=== PATIENT | female | born 1995 | race Two or more races ===

== ENCOUNTER 2017-04-16 19:46 | Emergency (ER) | payer SELFPAY ==
[~2017-04-16] VITALS: Ht 157.5 cm; Wt 45.0 kg
[~2017-04-16 19:46] MED LIST: CLON.5 PO; FLUO-191 PO; RISP1 PO
[2017-04-16 20:15] LABS: BASOPHILS # (AUTO) 0.02 K/uL (0.00-0.20); BASOPHILS % (AUTO) 0.2 % (0.0-2.0); EOSINOPHILS % (AUTO) 0.05 % (1.0-6.0); HEMATOCRIT 36.8 % (36-46); LYMPHOCYTES # (AUTO) 1.3 K/uL (1.0-4.8); LYMPHOCYTES % (AUTO) 13.3 % (22.0-44.0); MEAN CORPUSCULAR HEMOGLOBIN 29.8 pg (26.0-34.0); MEAN CORPUSCULAR HGB CONC 32.7 G/dL (31.0-37.0); MEAN CORPUSCULAR VOLUME 91 fL (80-100); MONOCYTES # (AUTO) 0.5 K/uL (0.1-1.0); MONOCYTES % (AUTO) 5.2 % (2.0-9.0); NEUTROPHILS # (AUTO) 8.1 K/uL (1.8-7.7); NEUTROPHILS % (AUTO) 81.2 % (40.0-70.0); PLATELET COUNT (AUTO) 246 K/uL (150-450); RED BLOOD CELL COUNT(AUTO) 4.04 MIL/uL (4.00-5.20); RED CELL DISTRIBUTION WIDTH 14.9 % (11.5-14.5); WHITE BLOOD COUNT (AUTO) 9.9 K/uL (4.5-11.0)
[2017-04-16 20:19] LABS: ANION GAP 10 mmol/L (8-16); CALCIUM, TOTAL 8.9 mg/dL (8.8-10.5); CARBON DIOXIDE 29 mmol/L (22-29); CHLORIDE 103 mmol/L (98-107); CREATININE 0.84 mg/dL (0.60-1.30); GLOMERULAR FILTR. RATE CALC > 60 mL/min (>60); POTASSIUM 3.5 mmol/L (3.5-5.1); SODIUM SERUM 142 mmol/L (136-145); UREA NITROGEN, BLOOD 12 mg/dL (7-18)
[2017-04-16 20:27] LABS: ALANINE AMINOTRANSFERASE 53 U/L (12-78); ALBUMIN 4.2 g/dL (3.4-5.0); ASPARTATE AMINOTRANSFERASE 19 U/L (15-37); TOTAL PROTEIN, SERUM 7.2 g/dL (6.4-8.2)
[2017-04-16 21:01] VITALS: BP 118/80
== END 2017-04-16 21:02 | disposition home or self-care (01) ==
LOC: EMS 19:47
DX: F41.9 Anxiety disorder, unspecified (principal); F31.9 Bipolar disorder, unspecified; F12.10 Cannabis abuse, uncomplicated; F15.10 Other stimulant abuse, uncomplicated; F17.210 Nicotine dependence, cigarettes, uncomplicated
CPT/HCPCS: 36415; 80053; 84703; 85025; 99284; G0480

== ENCOUNTER 2017-04-19 02:21 | Emergency (ER) | payer SELFPAY ==
[~2017-04-19] VITALS: Ht 157.5 cm; Wt 45.0 kg
[2017-04-19 03:03] LABS: BASOPHILS # (AUTO) 0.02 K/uL (0.00-0.20); BASOPHILS % (AUTO) 0.4 % (0.0-2.0); EOSINOPHILS # (AUTO) 0.06 K/uL (0.00-0.70); EOSINOPHILS % (AUTO) 0.89 % (1.0-6.0); HEMATOCRIT 32.8 % (36-46); HEMOGLOBIN 10.8 g/dL (12.0-16.0); LYMPHOCYTES # (AUTO) 1.4 K/uL (1.0-4.8); LYMPHOCYTES % (AUTO) 21.2 % (22.0-44.0); MEAN CORPUSCULAR HEMOGLOBIN 30.1 pg (26.0-34.0); MEAN CORPUSCULAR HGB CONC 32.9 G/dL (31.0-37.0); MEAN CORPUSCULAR VOLUME 91 fL (80-100); MONOCYTES # (AUTO) 0.7 K/uL (0.1-1.0); MONOCYTES % (AUTO) 9.7 % (2.0-9.0); NEUTROPHILS # (AUTO) 4.5 K/uL (1.8-7.7); NEUTROPHILS % (AUTO) 67.8 % (40.0-70.0); PLATELET COUNT (AUTO) 232 K/uL (150-450); RED BLOOD CELL COUNT(AUTO) 3.59 MIL/uL (4.00-5.20); RED CELL DISTRIBUTION WIDTH 14.9 % (11.5-14.5); WHITE BLOOD COUNT (AUTO) 6.7 K/uL (4.5-11.0)
[2017-04-19 03:10] LABS: ANION GAP 6 mmol/L (8-16); CARBON DIOXIDE 30 mmol/L (22-29); CHLORIDE 108 mmol/L (98-107); CREATININE 0.83 mg/dL (0.60-1.30); GLOMERULAR FILTR. RATE CALC > 60 mL/min (>60); POTASSIUM 3.8 mmol/L (3.5-5.1); SODIUM SERUM 144 mmol/L (136-145); UREA NITROGEN, BLOOD 10 mg/dL (7-18)
[2017-04-19 03:16] LABS: ALANINE AMINOTRANSFERASE 30 U/L (12-78); ALBUMIN 3.4 g/dL (3.4-5.0); ASPARTATE AMINOTRANSFERASE 14 U/L (15-37); BILIRUBIN,TOTAL 0.5 mg/dL (0.1-1.0); TOTAL PROTEIN, SERUM 5.9 g/dL (6.4-8.2)
[2017-04-19 04:46] VITALS: BP 110/68
== END 2017-04-19 04:50 | disposition home or self-care (01) ==
LOC: EMS 02:23
DX: F32.9 Major depressive disorder, single episode, unspecified (principal); F41.9 Anxiety disorder, unspecified; F17.210 Nicotine dependence, cigarettes, uncomplicated; F12.10 Cannabis abuse, uncomplicated
CPT/HCPCS: 36415; 80053; 80307; 84703; 85025; 99284; G0480

== ENCOUNTER 2017-08-20 09:19 | Emergency (ER) | payer MEDICAID ==
[~2017-08-20] VITALS: Ht 157.5 cm; Wt 47.7 kg
[2017-08-20 09:33] VITALS: BP 110/71
[2017-08-20 09:57] LABS: BASOPHILS # (AUTO) 0.02 K/uL (0.00-0.20); BASOPHILS % (AUTO) 0.3 % (0.0-2.0); EOSINOPHILS # (AUTO) 0.05 K/uL (0.00-0.70); HEMATOCRIT 38.3 % (36-46); HEMOGLOBIN 13.4 g/dL (12.0-16.0); LYMPHOCYTES # (AUTO) 1.2 K/uL (1.0-4.8); LYMPHOCYTES % (AUTO) 16.2 % (22.0-44.0); MEAN CORPUSCULAR HEMOGLOBIN 30.3 pg (26.0-34.0); MEAN CORPUSCULAR HGB CONC 34.8 G/dL (31.0-37.0); MEAN CORPUSCULAR VOLUME 87 fL (80-100); MONOCYTES # (AUTO) 0.4 K/uL (0.1-1.0); MONOCYTES % (AUTO) 5.6 % (2.0-9.0); NEUTROPHILS # (AUTO) 5.9 K/uL (1.8-7.7); NEUTROPHILS % (AUTO) 77.3 % (40.0-70.0); PLATELET COUNT (AUTO) 227 K/uL (150-450); RED BLOOD CELL COUNT(AUTO) 4.41 MIL/uL (4.00-5.20); RED CELL DISTRIBUTION WIDTH 13.7 % (11.5-14.5); WHITE BLOOD COUNT (AUTO) 7.7 K/uL (4.5-11.0)
[2017-08-20 10:08] LABS: ANION GAP 7 mmol/L (8-16); CALCIUM, TOTAL 8.4 mg/dL (8.8-10.5); CARBON DIOXIDE 29 mmol/L (22-29); CHLORIDE 106 mmol/L (98-107); CREATININE 0.89 mg/dL (0.60-1.30); GLOMERULAR FILTR. RATE CALC > 60 mL/min (>60); POTASSIUM 3.7 mmol/L (3.5-5.1); SODIUM SERUM 142 mmol/L (136-145); UREA NITROGEN, BLOOD 11 mg/dL (7-18)
[2017-08-20 10:13] LABS: ALANINE AMINOTRANSFERASE 20 U/L (12-78); ALBUMIN 3.7 g/dL (3.4-5.0); ASPARTATE AMINOTRANSFERASE 17 U/L (15-37); BILIRUBIN,TOTAL 0.7 mg/dL (0.1-1.0); TOTAL PROTEIN, SERUM 6.9 g/dL (6.4-8.2)
[2017-08-20] MEDS ORDERED: LORazepam 2 MG TABLET PO ONE (10:15)
[2017-08-20] MEDS ORDERED: RisperiDONE 1 MG TABLET PO ONE (10:15)
[2017-08-20] MEDS ORDERED: ACETAMINOPHEN 325 MG TABLET PO ONE (10:30)
== END 2017-08-20 10:50 | disposition home or self-care (01) ==
LOC: EEVIPCON 09:24 → EMS 09:24
DX: F32.9 Major depressive disorder, single episode, unspecified (principal); F41.9 Anxiety disorder, unspecified; F17.210 Nicotine dependence, cigarettes, uncomplicated; F12.10 Cannabis abuse, uncomplicated; F15.10 Other stimulant abuse, uncomplicated
CPT/HCPCS: 36415; 80053; 80307; 85025; 99285; G0480

== ENCOUNTER 2017-11-17 16:43 | Inpatient (IN) | payer MEDICAID ==
[~2017-11-17] VITALS: Ht 167.6 cm; Wt 47.2 kg
[2017-11-17] MEDS ORDERED: CLON.5 PO (17:01)
[2017-11-17] MEDS ORDERED: RISP.5 PO (17:01)
[2017-11-17] MEDS ORDERED: PROZ10 PO (17:01)
[2017-11-17 17:16] LABS: BASOPHILS # (AUTO) 0.04 K/uL (0.00-0.20); BASOPHILS % (AUTO) 0.3 % (0.0-2.0); EOSINOPHILS # (AUTO) 0.02 K/uL (0.00-0.70); EOSINOPHILS % (AUTO) 0.12 % (1.0-6.0); HEMOGLOBIN 14.7 g/dL (12.0-16.0); LYMPHOCYTES # (AUTO) 2.1 K/uL (1.0-4.8); MEAN CORPUSCULAR HEMOGLOBIN 30.6 pg (26.0-34.0); MEAN CORPUSCULAR HGB CONC 33.4 G/dL (31.0-37.0); MEAN CORPUSCULAR VOLUME 92 fL (80-100); MONOCYTES # (AUTO) 0.9 K/uL (0.1-1.0); MONOCYTES % (AUTO) 6.4 % (2.0-9.0); NEUTROPHILS # (AUTO) 10.7 K/uL (1.8-7.7); NEUTROPHILS % (AUTO) 78.2 % (40.0-70.0); PLATELET COUNT (AUTO) 239 K/uL (150-450); RED BLOOD CELL COUNT(AUTO) 4.79 MIL/uL (4.00-5.20); RED CELL DISTRIBUTION WIDTH 13.3 % (11.5-14.5)
[2017-11-17 17:26] LABS: AMPHET/METH SCREEN,URINE POSITIVE (NEGATIVE); BARBITURATE SCREEN, URINE NEGATIVE (NEGATIVE); BENZODIAZEPINES SCREEN,URINE NEGATIVE (NEGATIVE); CANNABINOID SCREEN,URINE POSITIVE (NEGATIVE); COCAINE SCREEN,URINE NEGATIVE (NEGATIVE); METHADONE SCREEN, URINE NEGATIVE (NEGATIVE); OPIATE SCREEN,URINE NEGATIVE (NEGATIVE)
[2017-11-17 17:27] LABS: ANION GAP 5 mmol/L (8-16); CALCIUM, TOTAL 9.1 mg/dL (8.8-10.5); CARBON DIOXIDE 31 mmol/L (22-29); CHLORIDE 101 mmol/L (98-107); CREATININE 0.84 mg/dL (0.60-1.30); GLOMERULAR FILTR. RATE CALC > 60 mL/min (>60); GLUCOSE,RANDOM 88 mg/dL (70-110); POTASSIUM 3.3 mmol/L (3.5-5.1); SODIUM SERUM 137 mmol/L (136-145); UREA NITROGEN, BLOOD 5 mg/dL (7-18)
[2017-11-17 17:31] LABS: PHENCYCLIDINE SCREEN,URINE NEGATIVE (NEGATIVE)
[2017-11-17 17:32] LABS: ALANINE AMINOTRANSFERASE 24 U/L (12-78); ALBUMIN 4.2 g/dL (3.4-5.0); ALKALINE PHOSPHATASE 90 U/L (46-116); ASPARTATE AMINOTRANSFERASE 23 U/L (15-37); BILIRUBIN,TOTAL 0.5 mg/dL (0.1-1.0); TOTAL PROTEIN, SERUM 7.8 g/dL (6.4-8.2)
[2017-11-17] MEDS ORDERED: ZOLPIDEM TARTRATE 10 MG TABLET PO PRN (18:15)
[2017-11-17] MEDS ORDERED: OLANZapine 5 MG RAPDIS TABLET PO PRN (18:15)
[2017-11-17] MEDS ORDERED: LORazepam 2 MG TABLET PO PRN (18:15)
[2017-11-17] MEDS ORDERED: POTASSIUM CHLORIDE 20 MEQ ER TABLET PO ONE (19:30)
[2017-11-17] MEDS ORDERED: PERMETHRIN 5% 60 GM CREAM TP ONE (19:30)
[2017-11-17 21:34] VITALS: BP 109/52
[2017-11-17] MEDS ORDERED: INFLUENZA VIRUS VACCINE QVS 2017-18 (3YR+)/PF 60 MCG/0.5 ML SYRINGE IM ONE (22:30)
[2017-11-18 08:00] VITALS: BP 103/69
[2017-11-18] MEDS ORDERED: MAG HYDROX/AL HYDROX/SIMETH ES 30 ML SUSPENSION UDCUP PO PRN (09:45)
[2017-11-18] MEDS ORDERED: MAGNESIUM HYDROXIDE SUSPENSION 30 ML UDCUP PO PRN (09:45)
[2017-11-18] MEDS ORDERED: LOPERAMIDE HCL 2 MG CAPSULE PO PRN (09:45)
[2017-11-18] MEDS ORDERED: IBUPROFEN 600 MG TABLET PO PRN (09:45)
[2017-11-18] MEDS ORDERED: ONDANSETRON HCL 4 MG TABLET PO PRN (09:45)
[2017-11-18] MEDS ORDERED: ALBUTEROL SULFATE HFA 90 MCG/PUFF 8 GM INHALER IH PRN (09:45)
[2017-11-18] MEDS ORDERED: ACETAMINOPHEN 325 MG TABLET PO PRN (09:45)
[2017-11-18] MEDS ORDERED: PETROLATUM,WHITE 71 GM JELLY TP PRN (09:45)
[2017-11-18] MEDS ORDERED: BACITRACIN 28.4 GM OINTMENT TP PRN (09:45)
[2017-11-18] MEDS ORDERED: CloNIDine HCL 0.1 MG TABLET PO PRN (09:45)
[2017-11-18] MEDS ORDERED: BENZOCAINE/MENTHOL LOZENGE [8 LOZENGES/PACKET] MM PRN (10:00)
[2017-11-18 16:30] VITALS: BP 121/74
[2017-11-18] MEDS: OLANZapine 5 MG TABLET PO SCH (21:27)
[2017-11-19 06:06] LABS: BASOPHILS % (AUTO) 0.7 % (0.0-2.0); EOSINOPHILS % (AUTO) 1.3 % (1.0-6.0); HEMATOCRIT 38.2 % (36-46); HEMOGLOBIN 13.1 g/dL (12.0-16.0); LYMPHOCYTES # (AUTO) 2.6 K/uL (1.0-4.8); LYMPHOCYTES % (AUTO) 36.2 % (22.0-44.0); MEAN CORPUSCULAR HEMOGLOBIN 30.9 pg (26.0-34.0); MEAN CORPUSCULAR HGB CONC 34.3 G/dL (31.0-37.0); MEAN CORPUSCULAR VOLUME 90 fL (80-100); MONOCYTES # (AUTO) 0.7 K/uL (0.1-1.0); MONOCYTES % (AUTO) 10.5 % (2.0-9.0); NEUTROPHILS # (AUTO) 3.7 K/uL (1.8-7.7); NEUTROPHILS % (AUTO) 51.3 % (40.0-70.0); PLATELET COUNT (AUTO) 225 K/uL (150-450); RED BLOOD CELL COUNT(AUTO) 4.23 MIL/uL (4.00-5.20); RED CELL DISTRIBUTION WIDTH 13.5 % (11.5-14.5)
[2017-11-19 06:24] LABS: ANION GAP 4 mmol/L (8-16); CALCIUM, TOTAL 8.3 mg/dL (8.8-10.5); CARBON DIOXIDE 31 mmol/L (22-29); CHLORIDE 103 mmol/L (98-107); CREATININE 0.79 mg/dL (0.60-1.30); GLOMERULAR FILTR. RATE CALC > 60 mL/min (>60); GLUCOSE,RANDOM 92 mg/dL (70-110); POTASSIUM 3.9 mmol/L (3.5-5.1); SODIUM SERUM 138 mmol/L (136-145); UREA NITROGEN, BLOOD 9 mg/dL (7-18)
[2017-11-19 09:04] VITALS: BP 91/43
[2017-11-19] MEDS: FLUoxetine HCL 20 MG CAPSULE PO SCH (10:01)
[2017-11-19 16:32] VITALS: BP 117/74
[2017-11-19] MEDS: OLANZapine 5 MG TABLET PO SCH (21:03)
[2017-11-20 08:44] VITALS: BP 95/54
[2017-11-20] MEDS: FLUoxetine HCL 20 MG CAPSULE PO SCH (09:29)
[2017-11-20 16:29] VITALS: BP 107/73
[2017-11-20] MEDS: OLANZapine 5 MG TABLET PO SCH (20:23)
[2017-11-21 08:42] VITALS: BP 104/64
[2017-11-21] MEDS: FLUoxetine HCL 20 MG CAPSULE PO SCH (11:20)
[2017-11-21] MEDS ORDERED: OLAN5TAB2 PO (15:53)
== END 2017-11-21 16:30 | disposition home or self-care (01) | DRG 750 ==
LOC: EMS 16:44 → 3EI 19:23
PROVIDERS: ADMIT Psychiatry & Neurology Psychiatry; ATTEND Psychiatry & Neurology Psychiatry
PROC: 3E0234Z Introduction of Serum, Toxoid and Vaccine into Muscle, Percutaneous Approach (ICD-10-PCS; principal; 2017-11-17)
DX: F25.9 Schizoaffective disorder, unspecified (principal); R45.851 Suicidal ideations; F23 Brief psychotic disorder; F15.10 Other stimulant abuse, uncomplicated; F17.200 Nicotine dependence, unspecified, uncomplicated; F12.10 Cannabis abuse, uncomplicated; F41.9 Anxiety disorder, unspecified; G47.00 Insomnia, unspecified; F60.3 Borderline personality disorder; D72.829 Elevated white blood cell count, unspecified; R63.6 Underweight; Z68.1 Body mass index [BMI] 19.9 or less, adult; Z91.5 Personal history of self-harm; Z79.899 Other long term (current) drug therapy; Z59.0 Homelessness; Z23 Encounter for immunization
CPT/HCPCS: 99285; 99406; G0480

== ENCOUNTER 2018-02-06 12:59 | Emergency (ER) | payer MEDICAID ==
[~2018-02-06] VITALS: Ht 170.2 cm; Wt 56.8 kg
[~2018-02-06 12:59] MED LIST changes: -CLON.5 PO; -FLUO-191 PO; +OLAN5TAB2 PO; +PROZ10 PO; -RISP1 PO
[2018-02-06 15:16] VITALS: BP 118/76
== END 2018-02-06 17:51 | disposition other institution (70) ==
LOC: EMS 13:02
DX: S09.90XA Unspecified injury of head, initial encounter (principal); F20.9 Schizophrenia, unspecified; F31.9 Bipolar disorder, unspecified; F12.90 Cannabis use, unspecified, uncomplicated; F17.210 Nicotine dependence, cigarettes, uncomplicated; X83.8XXA Intentional self-harm by other specified means, initial encounter; Y93.89 Activity, other specified; Y92.89 Other specified places as the place of occurrence of the external cause; Y99.8 Other external cause status
CPT/HCPCS: 70486; 99285

== ENCOUNTER 2018-03-09 12:50 | Inpatient (IN) | payer MEDICAID ==
[~2018-03-09] VITALS: Ht 157.5 cm; Wt 50.8 kg
[~2018-03-09 12:50] MED LIST changes: +DIVA500T35 PO; +FLUO-191 PO; +OLAN10TA3 PO
[2018-03-09 13:23] LABS: AMPHET/METH SCREEN,URINE POSITIVE (NEGATIVE); BARBITURATE SCREEN, URINE NEGATIVE (NEGATIVE); BENZODIAZEPINES SCREEN,URINE NEGATIVE (NEGATIVE); CANNABINOID SCREEN,URINE POSITIVE (NEGATIVE); COCAINE SCREEN,URINE NEGATIVE (NEGATIVE); METHADONE SCREEN, URINE NEGATIVE (NEGATIVE); OPIATE SCREEN,URINE NEGATIVE (NEGATIVE)
[2018-03-09 13:26] LABS: PHENCYCLIDINE SCREEN,URINE NEGATIVE (NEGATIVE)
[2018-03-09 13:35] LABS: BASOPHILS % (AUTO) 0.5 % (0.0-2.0); EOSINOPHILS % (AUTO) 0.3 % (1.0-6.0); HEMATOCRIT 36.6 % (36-46); HEMOGLOBIN 12.7 g/dL (12.0-16.0); LYMPHOCYTES # (AUTO) 1.3 K/uL (1.0-4.8); MEAN CORPUSCULAR HEMOGLOBIN 30.4 pg (26.0-34.0); MEAN CORPUSCULAR HGB CONC 34.7 G/dL (31.0-37.0); MEAN CORPUSCULAR VOLUME 87 fL (80-100); MONOCYTES # (AUTO) 0.9 K/uL (0.1-1.0); MONOCYTES % (AUTO) 5.9 % (2.0-9.0); NEUTROPHILS # (AUTO) 12.5 K/uL (1.8-7.7); NEUTROPHILS % (AUTO) 84.3 % (40.0-70.0); PLATELET COUNT (AUTO) 235 K/uL (150-450); RED BLOOD CELL COUNT(AUTO) 4.19 MIL/uL (4.00-5.20); RED CELL DISTRIBUTION WIDTH 13.6 % (11.5-14.5)
[2018-03-09] MEDS ORDERED: IBUPROFEN 400 MG TABLET PO ONE (13:45)
[2018-03-09 14:02] LABS: ANION GAP 9 mmol/L (8-16); CALCIUM, TOTAL 8.3 mg/dL (8.8-10.5); CARBON DIOXIDE 25 mmol/L (22-29); CHLORIDE 100 mmol/L (98-107); CREATININE 0.81 mg/dL (0.60-1.30); GLOMERULAR FILTR. RATE CALC > 60 mL/min (>60); GLUCOSE,RANDOM 107 mg/dL (70-110); POTASSIUM 3.9 mmol/L (3.5-5.1); SODIUM SERUM 134 mmol/L (136-145); UREA NITROGEN, BLOOD 11 mg/dL (7-18)
[2018-03-09 14:06] LABS: ALANINE AMINOTRANSFERASE 26 U/L (12-78); ALBUMIN 3.6 g/dL (3.4-5.0); ALKALINE PHOSPHATASE 98 U/L (46-116); ASPARTATE AMINOTRANSFERASE 22 U/L (15-37); BILIRUBIN,TOTAL 0.7 mg/dL (0.1-1.0); TOTAL PROTEIN, SERUM 7.1 g/dL (6.4-8.2)
[2018-03-09] MEDS ORDERED: DiphenhydrAMINE HCL 25 MG CAPSULE PO ONE (14:45)
[2018-03-09] MEDS ORDERED: LORazepam 2 MG/ML VIAL IM ONE (14:45)
[2018-03-09] MEDS ORDERED: HALOPERIDOL LACTATE 5 MG/ML VIAL IM ONE (14:45)
[2018-03-09] MEDS ORDERED: HALOPERIDOL 5 MG TABLET PO ONE (14:45)
[2018-03-09] MEDS ORDERED: LORazepam 2 MG TABLET PO ONE (14:45)
[2018-03-09] MEDS ORDERED: DiphenhydrAMINE HCL 50 MG/ML VIAL IM ONE (14:45)
[2018-03-09] MEDS ORDERED: ACETAMINOPHEN 325 MG TABLET PO PRN (20:30)
[2018-03-09] MEDS ORDERED: IBUPROFEN 400 MG TABLET PO PRN (20:30)
[2018-03-09 20:32] VITALS: BP 101/60
[2018-03-09] MEDS: OLANZapine 10 MG TABLET PO SCH (21:00)
[2018-03-09] MEDS: DIVALPROEX SODIUM 500 MG DR TABLET PO SCH (21:00)
[2018-03-10 05:43] VITALS: BP 103/61
[2018-03-10] MEDS ORDERED: DIVALPROEX SODIUM 500 MG DR TABLET PO SCH (09:00)
[2018-03-10] MEDS ORDERED: FLUoxetine HCL 10 MG CAPSULE PO SCH (09:00)
[2018-03-10 09:07] LABS: BASOPHILS % (AUTO) 0.8 % (0.0-2.0); EOSINOPHILS % (AUTO) 0.3 % (1.0-6.0); HEMATOCRIT 36.2 % (36-46); LYMPHOCYTES # (AUTO) 1.7 K/uL (1.0-4.8); LYMPHOCYTES % (AUTO) 15.6 % (22.0-44.0); MEAN CORPUSCULAR HEMOGLOBIN 31.3 pg (26.0-34.0); MEAN CORPUSCULAR HGB CONC 35.8 G/dL (31.0-37.0); MEAN CORPUSCULAR VOLUME 87 fL (80-100); MONOCYTES # (AUTO) 0.6 K/uL (0.1-1.0); MONOCYTES % (AUTO) 5.8 % (2.0-9.0); NEUTROPHILS # (AUTO) 8.3 K/uL (1.8-7.7); NEUTROPHILS % (AUTO) 77.5 % (40.0-70.0); PLATELET COUNT (AUTO) 223 K/uL (150-450); RED BLOOD CELL COUNT(AUTO) 4.15 MIL/uL (4.00-5.20); RED CELL DISTRIBUTION WIDTH 13.5 % (11.5-14.5)
[2018-03-10] MEDS: FLUoxetine HCL 20 MG CAPSULE PO SCH (09:31)
[2018-03-10] MEDS: DIVALPROEX SODIUM 500 MG DR TABLET PO SCH ×2 (09:31→20:53)
[2018-03-10] MEDS: OLANZapine 5 MG TABLET PO SCH (09:32)
[2018-03-10 17:28] VITALS: BP 100/62
[2018-03-10] MEDS: LORazepam 2 MG TABLET PO PRN (20:52)
[2018-03-10] MEDS: OLANZapine 10 MG TABLET PO SCH (20:52)
[2018-03-10] MEDS ORDERED: OLANZapine 10 MG TABLET PO SCH (21:00)
[2018-03-11 06:42] VITALS: BP 103/62
[2018-03-11] MEDS: FLUoxetine HCL 20 MG CAPSULE PO SCH (08:34)
[2018-03-11] MEDS: DIVALPROEX SODIUM 500 MG DR TABLET PO SCH ×2 (08:34→20:39)
[2018-03-11] MEDS: OLANZapine 5 MG TABLET PO SCH (08:35)
[2018-03-11 08:40] LABS: ANION GAP 6 mmol/L (8-16); CALCIUM, TOTAL 8.3 mg/dL (8.8-10.5); CARBON DIOXIDE 29 mmol/L (22-29); CHLORIDE 104 mmol/L (98-107); CREATININE 0.86 mg/dL (0.60-1.30); GLOMERULAR FILTR. RATE CALC > 60 mL/min (>60); GLUCOSE,RANDOM 109 mg/dL (70-110); POTASSIUM 3.7 mmol/L (3.5-5.1); SODIUM SERUM 139 mmol/L (136-145); UREA NITROGEN, BLOOD 14 mg/dL (7-18)
[2018-03-11 17:00] VITALS: BP 112/62
[2018-03-11] MEDS: HALOPERIDOL 5 MG TABLET PO PRN (19:09)
[2018-03-11] MEDS: LORazepam 2 MG TABLET PO PRN (19:09)
[2018-03-11] MEDS: OLANZapine 10 MG TABLET PO SCH (20:39)
[2018-03-12 06:53] VITALS: BP 104/65
[2018-03-12] MEDS: OLANZapine 5 MG TABLET PO SCH (08:32)
[2018-03-12] MEDS: DIVALPROEX SODIUM 500 MG DR TABLET PO SCH ×2 (08:32→21:38)
[2018-03-12] MEDS: FLUoxetine HCL 20 MG CAPSULE PO SCH (08:32)
[2018-03-12 09:00] VITALS: BP 110/72
[2018-03-12 16:14] VITALS: BP 103/63
[2018-03-12] MEDS: HALOPERIDOL 5 MG TABLET PO PRN (17:51)
[2018-03-12] MEDS: LORazepam 2 MG TABLET PO PRN (17:51)
[2018-03-12] MEDS: OLANZapine 10 MG TABLET PO SCH (21:37)
[2018-03-13 07:14] VITALS: BP_SYST 105; BP_SYST 119; BP_DIAS 64; BP_DIAS 79
[2018-03-13] MEDS: FLUoxetine HCL 20 MG CAPSULE PO SCH (08:43)
[2018-03-13] MEDS: OLANZapine 5 MG TABLET PO SCH (08:43)
[2018-03-13] MEDS: LORazepam 2 MG TABLET PO PRN ×2 (08:43→16:36)
[2018-03-13] MEDS: HALOPERIDOL 5 MG TABLET PO PRN ×2 (08:43→16:36)
[2018-03-13] MEDS: DIVALPROEX SODIUM 500 MG DR TABLET PO SCH ×2 (08:43→21:00)
[2018-03-13 17:05] VITALS: BP 119/76
[2018-03-13] MEDS: OLANZapine 10 MG TABLET PO SCH (21:00)
[2018-03-14 06:36] VITALS: BP 109/64
[2018-03-14] MEDS: OLANZapine 5 MG TABLET PO SCH (08:10)
[2018-03-14] MEDS: LORazepam 2 MG TABLET PO PRN ×2 (08:10→16:59)
[2018-03-14] MEDS: DIVALPROEX SODIUM 500 MG DR TABLET PO SCH ×2 (08:10→20:10)
[2018-03-14] MEDS: FLUoxetine HCL 20 MG CAPSULE PO SCH (08:10)
[2018-03-14 09:57] VITALS: BP 106/81
[2018-03-14 16:05] VITALS: BP 106/64
[2018-03-14] MEDS: HALOPERIDOL 5 MG TABLET PO PRN (16:59)
[2018-03-14] MEDS: OLANZapine 10 MG TABLET PO SCH (20:09)
[2018-03-14] MEDS: ZOLPIDEM TARTRATE 10 MG TABLET PO PRN (22:37)
[2018-03-15 06:30] VITALS: BP 110/65
[2018-03-15 08:20] VITALS: BP 102/61
[2018-03-15] MEDS: DIVALPROEX SODIUM 500 MG DR TABLET PO SCH ×2 (09:52→20:54)
[2018-03-15] MEDS: OLANZapine 5 MG TABLET PO SCH (09:53)
[2018-03-15] MEDS: FLUoxetine HCL 20 MG CAPSULE PO SCH (09:53)
[2018-03-15 16:31] VITALS: BP 113/60
[2018-03-15] MEDS: OLANZapine 10 MG TABLET PO SCH (20:54)
[2018-03-15] MEDS: ZOLPIDEM TARTRATE 10 MG TABLET PO PRN (20:55)
[2018-03-15] MEDS: HALOPERIDOL 5 MG TABLET PO PRN (21:17)
[2018-03-16 03:56] VITALS: BP 133/64
[2018-03-16] MEDS: DIVALPROEX SODIUM 500 MG DR TABLET PO SCH ×2 (09:06→21:15)
[2018-03-16] MEDS: OLANZapine 5 MG TABLET PO SCH (09:07)
[2018-03-16] MEDS: FLUoxetine HCL 20 MG CAPSULE PO SCH (09:07)
[2018-03-16 16:21] VITALS: BP 115/74
[2018-03-16] MEDS: LOPERAMIDE HCL 2 MG CAPSULE PO PRN (17:08)
[2018-03-16] MEDS: OLANZapine 10 MG TABLET PO SCH (21:15)
[2018-03-17 07:07] VITALS: BP 113/74
[2018-03-17 08:58] VITALS: BP 103/69
[2018-03-17] MEDS: FLUoxetine HCL 20 MG CAPSULE PO SCH (09:00)
[2018-03-17] MEDS: DIVALPROEX SODIUM 500 MG DR TABLET PO SCH ×2 (09:00→20:28)
[2018-03-17] MEDS: OLANZapine 5 MG TABLET PO SCH (09:00)
[2018-03-17 16:26] VITALS: BP 108/61
[2018-03-17] MEDS: LOPERAMIDE HCL 2 MG CAPSULE PO PRN (17:11)
[2018-03-17] MEDS: OLANZapine 10 MG TABLET PO SCH (20:28)
[2018-03-17] MEDS: ZOLPIDEM TARTRATE 10 MG TABLET PO PRN (21:00)
[2018-03-18 05:37] VITALS: BP 114/71
[2018-03-18] MEDS: LOPERAMIDE HCL 2 MG CAPSULE PO PRN (06:04)
[2018-03-18] MEDS: OLANZapine 5 MG TABLET PO SCH (08:20)
[2018-03-18] MEDS: FLUoxetine HCL 20 MG CAPSULE PO SCH (08:20)
[2018-03-18] MEDS: DIVALPROEX SODIUM 500 MG DR TABLET PO SCH ×2 (08:20→20:30)
[2018-03-18 08:48] VITALS: BP 100/65
[2018-03-18 16:22] VITALS: BP 109/62
[2018-03-18] MEDS: OLANZapine 10 MG TABLET PO SCH (20:31)
[2018-03-18] MEDS: ZOLPIDEM TARTRATE 10 MG TABLET PO PRN (20:53)
[2018-03-19 05:59] VITALS: BP 113/67
[2018-03-19] MEDS: OLANZapine 5 MG TABLET PO SCH (08:31)
[2018-03-19] MEDS: DIVALPROEX SODIUM 500 MG DR TABLET PO SCH ×2 (08:31→20:30)
[2018-03-19] MEDS: FLUoxetine HCL 20 MG CAPSULE PO SCH (08:31)
[2018-03-19 08:45] VITALS: BP 113/60
[2018-03-19 16:38] VITALS: BP 109/65
[2018-03-19] MEDS: OLANZapine 10 MG TABLET PO SCH (20:30)
[2018-03-19] MEDS: ZOLPIDEM TARTRATE 10 MG TABLET PO PRN (20:30)
[2018-03-20 06:53] VITALS: BP 102/63
[2018-03-20] MEDS: FLUoxetine HCL 20 MG CAPSULE PO SCH (08:29)
[2018-03-20] MEDS: OLANZapine 5 MG TABLET PO SCH (08:29)
[2018-03-20] MEDS: DIVALPROEX SODIUM 500 MG DR TABLET PO SCH (08:29)
[2018-03-20 08:59] VITALS: BP 110/75
[2018-03-20] MEDS ORDERED: OLAN10TA3 PO (15:57)
[2018-03-20] MEDS ORDERED: OLAN5TAB2 PO (15:58)
== END 2018-03-20 16:30 | disposition home or self-care (01) | DRG 750 ==
LOC: EMS 12:51 → B3A 19:07
DX: F25.0 Schizoaffective disorder, bipolar type (principal); E87.1 Hypo-osmolality and hyponatremia; F15.20 Other stimulant dependence, uncomplicated; Z91.14 Patient's other noncompliance with medication regimen; Z59.0 Homelessness; F17.200 Nicotine dependence, unspecified, uncomplicated; G47.00 Insomnia, unspecified; F12.20 Cannabis dependence, uncomplicated; D72.829 Elevated white blood cell count, unspecified; Z91.5 Personal history of self-harm; Z79.899 Other long term (current) drug therapy; Z71.6 Tobacco abuse counseling; Z71.51 Drug abuse counseling and surveillance of drug abuser
CPT/HCPCS: 84443; 87081; 99285; G0480

== ENCOUNTER 2018-03-23 16:41 | Inpatient (IN) | payer MEDICAID ==
[~2018-03-23] VITALS: Ht 157.5 cm; Wt 52.4 kg
[~2018-03-23 16:41] MED LIST changes: -PROZ10 PO
[2018-03-23] MEDS ORDERED: HALOPERIDOL 5 MG TABLET PO PRN (17:45)
[2018-03-23] MEDS ORDERED: LORazepam 2 MG TABLET PO PRN (17:45)
[2018-03-23 17:54] VITALS: BP 107/64
[2018-03-23] MEDS ORDERED: PERMETHRIN 5% 60 GM CREAM TP ONE (20:15)
[2018-03-23] MEDS: DIVALPROEX SODIUM 500 MG DR TABLET PO SCH (20:45)
[2018-03-23] MEDS: OLANZapine 10 MG TABLET PO SCH (20:45)
[2018-03-23] MEDS: ZOLPIDEM TARTRATE 10 MG TABLET PO PRN (22:41)
[2018-03-24 05:28] VITALS: BP 102/64
[2018-03-24 08:30] LABS: BASOPHILS % (AUTO) 0.6 % (0.0-2.0); EOSINOPHILS % (AUTO) 2.7 % (1.0-6.0); HEMATOCRIT 34.6 % (36-46); HEMOGLOBIN 11.9 g/dL (12.0-16.0); LYMPHOCYTES # (AUTO) 2.6 K/uL (1.0-4.8); LYMPHOCYTES % (AUTO) 38.4 % (22.0-44.0); MEAN CORPUSCULAR HEMOGLOBIN 30.6 pg (26.0-34.0); MEAN CORPUSCULAR HGB CONC 34.4 G/dL (31.0-37.0); MEAN CORPUSCULAR VOLUME 89 fL (80-100); MONOCYTES # (AUTO) 0.9 K/uL (0.1-1.0); NEUTROPHILS # (AUTO) 3.1 K/uL (1.8-7.7); NEUTROPHILS % (AUTO) 45.3 % (40.0-70.0); PLATELET COUNT (AUTO) 278 K/uL (150-450); RED CELL DISTRIBUTION WIDTH 13.8 % (11.5-14.5)
[2018-03-24 08:38] LABS: HEMOGLOBIN A1C 5.9 % (4.5-6.2)
[2018-03-24 08:39] VITALS: BP 109/76
[2018-03-24] MEDS: OLANZapine 5 MG TABLET PO SCH (08:41)
[2018-03-24] MEDS: FLUoxetine HCL 20 MG CAPSULE PO SCH (08:41)
[2018-03-24] MEDS: DIVALPROEX SODIUM 500 MG DR TABLET PO SCH ×2 (08:41→20:09)
[2018-03-24 08:50] LABS: ALANINE AMINOTRANSFERASE 22 U/L (12-78); ALBUMIN 3.1 g/dL (3.4-5.0); ALKALINE PHOSPHATASE 68 U/L (46-116); ANION GAP 7 mmol/L (8-16); ASPARTATE AMINOTRANSFERASE 22 U/L (15-37); BILIRUBIN,TOTAL 0.2 mg/dL (0.1-1.0); CALCIUM, TOTAL 7.9 mg/dL (8.8-10.5); CARBON DIOXIDE 31 mmol/L (22-29); CHLORIDE 105 mmol/L (98-107); CHOL/HDL RATIO 2.2 (3.9-5.7); CHOLESTEROL 105 mg/dL (131-200); CREATININE 0.79 mg/dL (0.60-1.30); FREE T4 (FREE THYROXINE) 0.97 ng/dL (0.76-1.46); GLOMERULAR FILTR. RATE CALC > 60 mL/min (>60); GLUCOSE,RANDOM 78 mg/dL (70-110); HCG,QUANTITATIVE < 1 mIU/mL (0-6); HDL CHOLESTEROL 47 mg/dL (40-60); LDL CHOL (CALC.) 51 mg/dL (0-130); POTASSIUM 3.6 mmol/L (3.5-5.1); SODIUM SERUM 143 mmol/L (136-145); THYROID STIMULATING HORMONE 4.65 uIU/mL (0.36-3.74); TRIGLYCERIDES 34 mg/dL (15-150); UREA NITROGEN, BLOOD 10 mg/dL (7-18)
[2018-03-24 10:35] LABS: AMPHET/METH SCREEN,URINE POSITIVE (NEGATIVE); BARBITURATE SCREEN, URINE NEGATIVE (NEGATIVE); BENZODIAZEPINES SCREEN,URINE NEGATIVE (NEGATIVE); CANNABINOID SCREEN,URINE POSITIVE (NEGATIVE); COCAINE SCREEN,URINE NEGATIVE (NEGATIVE); METHADONE SCREEN, URINE NEGATIVE (NEGATIVE); OPIATE SCREEN,URINE NEGATIVE (NEGATIVE)
[2018-03-24 10:36] LABS: PHENCYCLIDINE SCREEN,URINE NEGATIVE (NEGATIVE)
[2018-03-24 13:16] LABS: APPEARANCE,URINE CLEAR (CLEAR)
[2018-03-24 13:17] LABS: BILIRUBIN,URINE NEGATIVE (NEGATIVE); GLUCOSE, URINE (UA) NEGATIVE (NEGATIVE); KETONES,URINE NEGATIVE (NEGATIVE); LEUKOCYTE ESTERASE ,URINE NEGATIVE (NEGATIVE); NITRATE,URINE NEGATIVE (NEGATIVE); OCCULT BLOOD,URINE NEGATIVE (NEGATIVE); PROTEIN,URINE NEGATIVE (NEGATIVE); UROBILINOGEN,URINE 0.2 mg/dL (<=1.0)
[2018-03-24] MEDS ORDERED: PERMETHRIN 5% 60 GM CREAM TP ONE (14:00)
[2018-03-24 16:04] VITALS: BP 113/65
[2018-03-24] MEDS: OLANZapine 10 MG TABLET PO SCH (20:09)
[2018-03-24] MEDS: ZOLPIDEM TARTRATE 10 MG TABLET PO PRN (20:59)
[2018-03-24] MEDS ORDERED: IBUPROFEN 400 MG TABLET PO PRN (22:45)
[2018-03-24] MEDS ORDERED: ACETAMINOPHEN 325 MG TABLET PO PRN (22:45)
[2018-03-25 00:41] VITALS: BP 109/67
[2018-03-25] MEDS: LEVOTHYROXINE SODIUM 50 MCG TABLET PO SCH (06:59)
[2018-03-25] MEDS: FERROUS SULFATE 325 MG EC TABLET PO SCH ×2 (06:59→16:44)
[2018-03-25] MEDS: DIVALPROEX SODIUM 500 MG DR TABLET PO SCH ×2 (08:14→20:41)
[2018-03-25] MEDS: FLUoxetine HCL 20 MG CAPSULE PO SCH (08:14)
[2018-03-25] MEDS: OLANZapine 5 MG TABLET PO SCH (08:16)
[2018-03-25 08:52] VITALS: BP 115/60
[2018-03-25 09:11] LABS: CHOL/HDL RATIO 2.3 (3.9-5.7)
[2018-03-25 16:06] VITALS: BP 110/80
[2018-03-25] MEDS: ZOLPIDEM TARTRATE 10 MG TABLET PO PRN (20:41)
[2018-03-25] MEDS: OLANZapine 10 MG TABLET PO SCH (20:41)
[2018-03-26 03:13] VITALS: BP 105/77
[2018-03-26] MEDS: LEVOTHYROXINE SODIUM 50 MCG TABLET PO SCH (06:04)
[2018-03-26] MEDS: FERROUS SULFATE 325 MG EC TABLET PO SCH ×2 (06:04→16:44)
[2018-03-26 08:11] VITALS: BP 104/60
[2018-03-26] MEDS: FLUoxetine HCL 20 MG CAPSULE PO SCH (08:59)
[2018-03-26] MEDS: OLANZapine 5 MG TABLET PO SCH (08:59)
[2018-03-26] MEDS: DIVALPROEX SODIUM 500 MG DR TABLET PO SCH ×2 (08:59→20:20)
[2018-03-26 16:41] VITALS: BP 108/65
[2018-03-26] MEDS: OLANZapine 10 MG TABLET PO SCH (20:20)
[2018-03-26] MEDS: ZOLPIDEM TARTRATE 10 MG TABLET PO PRN (20:26)
[2018-03-27 06:11] VITALS: BP 104/60
[2018-03-27] MEDS: LEVOTHYROXINE SODIUM 50 MCG TABLET PO SCH (06:12)
[2018-03-27] MEDS: FERROUS SULFATE 325 MG EC TABLET PO SCH (06:12)
[2018-03-27] MEDS: DIVALPROEX SODIUM 500 MG DR TABLET PO SCH (08:37)
[2018-03-27] MEDS: OLANZapine 5 MG TABLET PO SCH (08:37)
[2018-03-27] MEDS: FLUoxetine HCL 20 MG CAPSULE PO SCH (08:37)
[2018-03-27] MEDS ORDERED: LEVO50TA11 PO (08:57)
[2018-03-27] MEDS ORDERED: FERR325T22 PO (08:57)
[2018-03-27] MEDS ORDERED: DIVA500T35 PO (08:59)
[2018-03-27] MEDS ORDERED: OLAN5TAB27 PO (08:59)
[2018-03-27] MEDS ORDERED: FLUO-191 PO (08:59)
[2018-03-27] MEDS ORDERED: OLAN10TA20 PO (08:59)
[2018-03-27 09:01] VITALS: BP 100/55
== END 2018-03-27 10:10 | disposition home or self-care (01) | DRG 750 ==
LOC: B2S 17:37
DX: F25.0 Schizoaffective disorder, bipolar type (principal); F15.20 Other stimulant dependence, uncomplicated; R45.851 Suicidal ideations; E03.9 Hypothyroidism, unspecified; D64.9 Anemia, unspecified; G47.00 Insomnia, unspecified; F17.200 Nicotine dependence, unspecified, uncomplicated; F12.90 Cannabis use, unspecified, uncomplicated; Z79.899 Other long term (current) drug therapy; Z71.6 Tobacco abuse counseling; Z71.51 Drug abuse counseling and surveillance of drug abuser
CPT/HCPCS: 80307; 83036; 84439; 84443; 87081

== ENCOUNTER 2018-04-03 03:15 | Emergency (ER) | payer MEDICAID ==
[~2018-04-03 03:15] MED LIST changes: +FERR325T22 PO; +LEVO50TA11 PO; +OLAN10TA20 PO; -OLAN10TA3 PO; -OLAN5TAB2 PO; +OLAN5TAB27 PO
== END 2018-04-03 04:32 | disposition left against medical advice (07) ==
LOC: EMS 03:16
DX: Z00.8 Encounter for other general examination (principal); Z53.21 Procedure and treatment not carried out due to patient leaving prior to being seen by health care provider

== ENCOUNTER 2018-05-04 11:54 | Inpatient (IN) | payer MEDICAID ==
[~2018-05-04] VITALS: Ht 157.5 cm; Wt 54.0 kg
[~2018-05-04 11:54] MED LIST changes: +DIVA-78 PO; -DIVA500T35 PO
[2018-05-04] MEDS ORDERED: DiphenhydrAMINE HCL 50 MG/ML VIAL IM ONE (12:45)
[2018-05-04] MEDS ORDERED: LORazepam 2 MG/ML VIAL IM ONE (12:45)
[2018-05-04] MEDS ORDERED: HALOPERIDOL LACTATE 5 MG/ML VIAL IM ONE (12:45)
[2018-05-04 13:05] LABS: BASOPHILS % (AUTO) 0.4 % (0.0-2.0); EOSINOPHILS % (AUTO) 0.1 % (1.0-6.0); HEMATOCRIT 37.1 % (36-46); HEMOGLOBIN 12.4 g/dL (12.0-16.0); LYMPHOCYTES # (AUTO) 1.5 K/uL (1.0-4.8); LYMPHOCYTES % (AUTO) 14.5 % (22.0-44.0); MEAN CORPUSCULAR HEMOGLOBIN 29.5 pg (26.0-34.0); MEAN CORPUSCULAR HGB CONC 33.4 G/dL (31.0-37.0); MEAN CORPUSCULAR VOLUME 88 fL (80-100); MONOCYTES # (AUTO) 0.8 K/uL (0.1-1.0); MONOCYTES % (AUTO) 7.9 % (2.0-9.0); NEUTROPHILS # (AUTO) 8.1 K/uL (1.8-7.7); NEUTROPHILS % (AUTO) 77.1 % (40.0-70.0); PLATELET COUNT (AUTO) 262 K/uL (150-450); RED BLOOD CELL COUNT(AUTO) 4.19 MIL/uL (4.00-5.20); RED CELL DISTRIBUTION WIDTH 13.5 % (11.5-14.5)
[2018-05-04 13:13] LABS: ANION GAP 6 mmol/L (8-16); CALCIUM, TOTAL 8.5 mg/dL (8.8-10.5); CARBON DIOXIDE 28 mmol/L (22-29); CHLORIDE 103 mmol/L (98-107); CREATININE 0.76 mg/dL (0.60-1.30); GLOMERULAR FILTR. RATE CALC > 60 mL/min (>60); GLUCOSE,RANDOM 94 mg/dL (70-110); POTASSIUM 3.6 mmol/L (3.5-5.1); SODIUM SERUM 137 mmol/L (136-145); UREA NITROGEN, BLOOD 8 mg/dL (7-18)
[2018-05-04 13:19] LABS: ALANINE AMINOTRANSFERASE 20 U/L (12-78); ALBUMIN 3.7 g/dL (3.4-5.0); ALKALINE PHOSPHATASE 80 U/L (46-116); ASPARTATE AMINOTRANSFERASE 20 U/L (15-37); BILIRUBIN,TOTAL 0.5 mg/dL (0.1-1.0); TOTAL PROTEIN, SERUM 6.8 g/dL (6.4-8.2)
[2018-05-04 13:23] LABS: AMPHET/METH SCREEN,URINE POSITIVE (NEGATIVE); BARBITURATE SCREEN, URINE NEGATIVE (NEGATIVE); BENZODIAZEPINES SCREEN,URINE NEGATIVE (NEGATIVE); CANNABINOID SCREEN,URINE POSITIVE (NEGATIVE); COCAINE SCREEN,URINE NEGATIVE (NEGATIVE); METHADONE SCREEN, URINE NEGATIVE (NEGATIVE); OPIATE SCREEN,URINE NEGATIVE (NEGATIVE)
[2018-05-04 13:24] LABS: PHENCYCLIDINE SCREEN,URINE NEGATIVE (NEGATIVE)
[2018-05-04] MEDS ORDERED: ZOLPIDEM TARTRATE 10 MG TABLET PO PRN (16:45)
[2018-05-04] MEDS: OLANZapine 5 MG TABLET PO SCH (21:00)
[2018-05-05] MEDS: LEVOTHYROXINE SODIUM 50 MCG TABLET PO SCH (06:13)
[2018-05-05 06:30] VITALS: BP 102/64
[2018-05-05] MEDS: FERROUS SULFATE 325 MG EC TABLET PO SCH ×2 (06:40→17:40)
[2018-05-05] MEDS: FLUoxetine HCL 20 MG CAPSULE PO SCH (09:39)
[2018-05-05] MEDS ORDERED: DOCUSATE SODIUM 100 MG CAPSULE PO PRN (11:15)
[2018-05-05] MEDS ORDERED: CloNIDine HCL 0.1 MG TABLET PO PRN (11:15)
[2018-05-05] MEDS ORDERED: PETROLATUM,WHITE 71 GM JELLY TP PRN (11:15)
[2018-05-05] MEDS ORDERED: MAGNESIUM HYDROXIDE SUSPENSION 30 ML UDCUP PO PRN (11:15)
[2018-05-05] MEDS ORDERED: IBUPROFEN 400 MG TABLET PO PRN (11:15)
[2018-05-05] MEDS ORDERED: ACETAMINOPHEN 325 MG TABLET PO PRN (11:15)
[2018-05-05] MEDS ORDERED: ALBUTEROL SULFATE HFA 90 MCG/PUFF 8 GM INHALER IH PRN (11:15)
[2018-05-05] MEDS ORDERED: ONDANSETRON HCL 4 MG TABLET PO PRN (11:15)
[2018-05-05] MEDS ORDERED: MAG HYDROX/AL HYDROX/SIMETH ES 30 ML SUSPENSION UDCUP PO PRN (11:15)
[2018-05-05] MEDS ORDERED: LOPERAMIDE HCL 2 MG CAPSULE PO PRN (11:15)
[2018-05-05 16:41] VITALS: BP 106/74
[2018-05-05] MEDS: LORazepam 2 MG TABLET PO PRN (17:40)
[2018-05-05] MEDS: OLANZapine 5 MG TABLET PO SCH (20:32)
[2018-05-06] MEDS: LEVOTHYROXINE SODIUM 50 MCG TABLET PO SCH (06:02)
[2018-05-06 06:34] VITALS: BP 104/58
[2018-05-06] MEDS: FERROUS SULFATE 325 MG EC TABLET PO SCH ×2 (06:47→16:47)
[2018-05-06] MEDS: FLUoxetine HCL 20 MG CAPSULE PO SCH (08:39)
[2018-05-06] MEDS: NICOTINE 14 MG/24 HOUR PATCH TD SCH (08:43)
[2018-05-06 09:05] LABS: HEMOGLOBIN A1C 5.7 % (4.5-6.2)
[2018-05-06 09:23] LABS: CHOL/HDL RATIO 2.6 (3.9-5.7); THYROID STIMULATING HORMONE 0.95 uIU/mL (0.36-3.74)
[2018-05-06 16:04] VITALS: BP 100/60
[2018-05-06 16:45] VITALS: BP 110/77
[2018-05-06] MEDS: LORazepam 2 MG TABLET PO PRN (16:47)
[2018-05-06] MEDS: HALOPERIDOL 5 MG TABLET PO PRN (16:47)
[2018-05-06] MEDS: OLANZapine 5 MG TABLET PO SCH (20:22)
[2018-05-07] MEDS: FERROUS SULFATE 325 MG EC TABLET PO SCH ×2 (06:28→16:40)
[2018-05-07] MEDS: LEVOTHYROXINE SODIUM 50 MCG TABLET PO SCH (06:28)
[2018-05-07 07:06] VITALS: BP 107/66
[2018-05-07] MEDS: FLUoxetine HCL 20 MG CAPSULE PO SCH (09:01)
[2018-05-07] MEDS: NICOTINE 14 MG/24 HOUR PATCH TD SCH (09:02)
[2018-05-07] MEDS: HALOPERIDOL 5 MG TABLET PO PRN (15:55)
[2018-05-07] MEDS: LORazepam 2 MG TABLET PO PRN (15:55)
[2018-05-07 16:18] VITALS: BP 114/68
[2018-05-07] MEDS: OLANZapine 5 MG TABLET PO SCH (20:31)
[2018-05-08] MEDS: LEVOTHYROXINE SODIUM 50 MCG TABLET PO SCH (06:28)
[2018-05-08] MEDS: FERROUS SULFATE 325 MG EC TABLET PO SCH ×2 (06:28→16:51)
[2018-05-08 07:07] VITALS: BP 139/88
[2018-05-08 07:08] VITALS: BP 102/60
[2018-05-08] MEDS: NICOTINE 14 MG/24 HOUR PATCH TD SCH (09:00)
[2018-05-08 09:24] VITALS: BP 103/60
[2018-05-08] MEDS: FLUoxetine HCL 20 MG CAPSULE PO SCH (09:33)
[2018-05-08] MEDS ORDERED: DiphenhydrAMINE HCL 50 MG/ML VIAL IM ONE (13:00)
[2018-05-08] MEDS ORDERED: HALOPERIDOL LACTATE 5 MG/ML VIAL IM ONE (13:00)
[2018-05-08] MEDS ORDERED: LORazepam 2 MG/ML VIAL IM ONE (13:00)
[2018-05-08] MEDS ORDERED: OLANZapine 10 MG TABLET PO SCH (21:00)
[2018-05-09] MEDS: LEVOTHYROXINE SODIUM 50 MCG TABLET PO SCH (06:36)
[2018-05-09] MEDS: FERROUS SULFATE 325 MG EC TABLET PO SCH ×2 (06:36→16:30)
[2018-05-09 07:00] VITALS: BP 101/65
[2018-05-09 08:00] VITALS: BP 115/61
[2018-05-09] MEDS: FLUoxetine HCL 20 MG CAPSULE PO SCH (09:27)
[2018-05-09] MEDS: NICOTINE 14 MG/24 HOUR PATCH TD SCH (09:28)
[2018-05-09] MEDS: HALOPERIDOL 5 MG TABLET PO PRN (13:35)
[2018-05-09] MEDS: LORazepam 2 MG TABLET PO PRN (15:02)
[2018-05-09 16:00] VITALS: BP 109/70
[2018-05-09] MEDS: OLANZapine 10 MG TABLET PO SCH (16:31)
[2018-05-10] MEDS: LEVOTHYROXINE SODIUM 50 MCG TABLET PO SCH (06:20)
[2018-05-10 07:00] VITALS: BP 103/62
[2018-05-10] MEDS: FERROUS SULFATE 325 MG EC TABLET PO SCH ×2 (07:07→16:34)
[2018-05-10 08:26] VITALS: BP 112/69
[2018-05-10] MEDS: OLANZapine 10 MG TABLET PO SCH (09:05)
[2018-05-10] MEDS: NICOTINE 14 MG/24 HOUR PATCH TD SCH (09:05)
[2018-05-10] MEDS: FLUoxetine HCL 20 MG CAPSULE PO SCH (09:05)
[2018-05-10 09:26] LABS: AMPHET/METH SCREEN,URINE NEGATIVE (NEGATIVE); BARBITURATE SCREEN, URINE NEGATIVE (NEGATIVE); BENZODIAZEPINES SCREEN,URINE NEGATIVE (NEGATIVE); CANNABINOID SCREEN,URINE POSITIVE (NEGATIVE); COCAINE SCREEN,URINE NEGATIVE (NEGATIVE); METHADONE SCREEN, URINE NEGATIVE (NEGATIVE); OPIATE SCREEN,URINE NEGATIVE (NEGATIVE)
[2018-05-10 09:27] LABS: PHENCYCLIDINE SCREEN,URINE NEGATIVE (NEGATIVE)
[2018-05-10] MEDS: LORazepam 2 MG TABLET PO PRN (09:59)
[2018-05-10 10:28] LABS: APPEARANCE,URINE CLOUDY (CLEAR); BILIRUBIN,URINE NEGATIVE (NEGATIVE); GLUCOSE, URINE (UA) NEGATIVE (NEGATIVE); KETONES,URINE NEGATIVE (NEGATIVE); LEUKOCYTE ESTERASE ,URINE MODERATE (NEGATIVE); NITRATE,URINE NEGATIVE (NEGATIVE); OCCULT BLOOD,URINE NEGATIVE (NEGATIVE); PH,URINE 6.5 (5.0-8.0); PROTEIN,URINE NEGATIVE (NEGATIVE); UROBILINOGEN,URINE 0.2 mg/dL (<=1.0)
[2018-05-10 10:54] LABS: SQUAMOUS EPITHELIAL CELL,UR Many /LPF (None Seen)
[2018-05-10 10:55] LABS: BACTERIA,URINE Rare /HPF (None Seen); YEAST,URINE Few /HPF (None Seen)
[2018-05-10 16:00] VITALS: BP 129/65
[2018-05-10] MEDS: OLANZapine 7.5 MG TABLET PO SCH (16:34)
[2018-05-11 02:07] VITALS: BP 100/65
[2018-05-11] MEDS: FERROUS SULFATE 325 MG EC TABLET PO SCH ×2 (06:44→16:37)
[2018-05-11] MEDS: LEVOTHYROXINE SODIUM 50 MCG TABLET PO SCH (06:44)
[2018-05-11 08:19] VITALS: BP 110/66
[2018-05-11] MEDS: OLANZapine 7.5 MG TABLET PO SCH ×2 (09:00→16:37)
[2018-05-11] MEDS: FLUoxetine HCL 20 MG CAPSULE PO SCH (09:00)
[2018-05-11] MEDS: CIPROFLOXACIN HCL 250 MG TABLET PO SCH ×2 (09:00→16:11)
[2018-05-11] MEDS: NICOTINE 14 MG/24 HOUR PATCH TD SCH (09:00)
[2018-05-11] MEDS: HALOPERIDOL 5 MG TABLET PO PRN ×2 (12:07→17:13)
[2018-05-11 16:19] VITALS: BP 109/63
[2018-05-11] MEDS: LORazepam 2 MG TABLET PO PRN (17:13)
[2018-05-11] MEDS ORDERED: DiphenhydrAMINE HCL 50 MG/ML VIAL IM ONE (18:30)
[2018-05-11] MEDS ORDERED: HALOPERIDOL LACTATE 5 MG/ML VIAL IM ONE (18:30)
[2018-05-11] MEDS ORDERED: LORazepam 2 MG/ML VIAL IM ONE (18:30)
[2018-05-11] MEDS ORDERED: OLANZapine 10 MG TABLET PO SCH (21:00)
[2018-05-12 02:58] VITALS: BP 111/62
[2018-05-12] MEDS: LEVOTHYROXINE SODIUM 50 MCG TABLET PO SCH (06:27)
[2018-05-12] MEDS: FERROUS SULFATE 325 MG EC TABLET PO SCH ×2 (07:09→17:03)
[2018-05-12 08:31] VITALS: BP 116/71
[2018-05-12] MEDS: CIPROFLOXACIN HCL 250 MG TABLET PO SCH ×2 (08:58→16:04)
[2018-05-12] MEDS: FLUoxetine HCL 20 MG CAPSULE PO SCH (09:00)
[2018-05-12] MEDS: NICOTINE 14 MG/24 HOUR PATCH TD SCH (09:00)
[2018-05-12] MEDS: HALOPERIDOL 5 MG TABLET PO PRN (12:15)
[2018-05-12] MEDS: LORazepam 2 MG TABLET PO PRN (12:15)
[2018-05-12] MEDS: DIVALPROEX SODIUM 250 MG ER TABLET PO SCH (16:04)
[2018-05-12 16:13] VITALS: BP 109/69
[2018-05-12] MEDS: OLANZapine 10 MG TABLET PO SCH (20:10)
[2018-05-13 05:11] VITALS: BP 114/72
[2018-05-13] MEDS: LEVOTHYROXINE SODIUM 50 MCG TABLET PO SCH (06:44)
[2018-05-13] MEDS: FERROUS SULFATE 325 MG EC TABLET PO SCH ×2 (07:01→17:08)
[2018-05-13 08:41] VITALS: BP 118/71
[2018-05-13] MEDS: NICOTINE 14 MG/24 HOUR PATCH TD SCH (09:00)
[2018-05-13] MEDS: CIPROFLOXACIN HCL 250 MG TABLET PO SCH ×2 (09:26→17:08)
[2018-05-13] MEDS: FLUoxetine HCL 20 MG CAPSULE PO SCH (09:26)
[2018-05-13] MEDS: DIVALPROEX SODIUM 250 MG ER TABLET PO SCH ×2 (09:26→17:08)
[2018-05-13 16:39] VITALS: BP 107/65
[2018-05-13] MEDS: HALOPERIDOL 5 MG TABLET PO PRN (16:46)
[2018-05-13] MEDS: LORazepam 2 MG TABLET PO PRN (16:46)
[2018-05-13] MEDS: OLANZapine 10 MG TABLET PO SCH (20:28)
[2018-05-14 01:57] VITALS: BP 110/70
[2018-05-14] MEDS: FERROUS SULFATE 325 MG EC TABLET PO SCH ×2 (06:38→17:03)
[2018-05-14] MEDS: LEVOTHYROXINE SODIUM 50 MCG TABLET PO SCH (06:39)
[2018-05-14 08:13] VITALS: BP 128/74
[2018-05-14] MEDS: DIVALPROEX SODIUM 250 MG ER TABLET PO SCH ×2 (08:37→17:03)
[2018-05-14] MEDS: CIPROFLOXACIN HCL 250 MG TABLET PO SCH ×2 (08:37→17:03)
[2018-05-14] MEDS: NICOTINE 14 MG/24 HOUR PATCH TD SCH (08:37)
[2018-05-14] MEDS: LORazepam 2 MG TABLET PO PRN (08:37)
[2018-05-14] MEDS: HALOPERIDOL 5 MG TABLET PO PRN ×2 (08:37→17:03)
[2018-05-14] MEDS: FLUoxetine HCL 20 MG CAPSULE PO SCH (08:37)
[2018-05-14 16:08] VITALS: BP 109/63
[2018-05-14] MEDS: OLANZapine 10 MG TABLET PO SCH (21:06)
[2018-05-15 04:22] VITALS: BP 100/64
[2018-05-15] MEDS: LEVOTHYROXINE SODIUM 50 MCG TABLET PO SCH (06:28)
[2018-05-15] MEDS: FERROUS SULFATE 325 MG EC TABLET PO SCH ×2 (06:28→16:12)
[2018-05-15 08:19] VITALS: BP 115/66
[2018-05-15 08:45] LABS: BASOPHILS % (AUTO) 0.4 % (0.0-2.0); EOSINOPHILS % (AUTO) 0.7 % (1.0-6.0); HEMATOCRIT 33.1 % (36-46); HEMOGLOBIN 11.6 g/dL (12.0-16.0); LYMPHOCYTES # (AUTO) 1.4 K/uL (1.0-4.8); MEAN CORPUSCULAR HEMOGLOBIN 30.8 pg (26.0-34.0); MEAN CORPUSCULAR HGB CONC 34.9 G/dL (31.0-37.0); MEAN CORPUSCULAR VOLUME 88 fL (80-100); MONOCYTES % (AUTO) 9.2 % (2.0-9.0); NEUTROPHILS # (AUTO) 8.3 K/uL (1.8-7.7); NEUTROPHILS % (AUTO) 76.7 % (40.0-70.0); PLATELET COUNT (AUTO) 217 K/uL (150-450); RED BLOOD CELL COUNT(AUTO) 3.75 MIL/uL (4.00-5.20); RED CELL DISTRIBUTION WIDTH 13.7 % (11.5-14.5)
[2018-05-15] MEDS: NICOTINE 14 MG/24 HOUR PATCH TD SCH (09:00)
[2018-05-15] MEDS: CIPROFLOXACIN HCL 250 MG TABLET PO SCH ×2 (09:30→16:12)
[2018-05-15] MEDS: DIVALPROEX SODIUM 250 MG ER TABLET PO SCH (09:30)
[2018-05-15] MEDS: FLUoxetine HCL 20 MG CAPSULE PO SCH (09:30)
[2018-05-15 11:20] LABS: ALANINE AMINOTRANSFERASE 22 U/L (12-78); ALBUMIN 2.9 g/dL (3.4-5.0); ALKALINE PHOSPHATASE 89 U/L (46-116); ANION GAP 6 mmol/L (8-16); ASPARTATE AMINOTRANSFERASE 16 U/L (15-37); BILIRUBIN,TOTAL 0.2 mg/dL (0.1-1.0); CALCIUM, TOTAL 8.1 mg/dL (8.8-10.5); CARBON DIOXIDE 26 mmol/L (22-29); CHLORIDE 105 mmol/L (98-107); CREATININE 0.66 mg/dL (0.60-1.30); GLOMERULAR FILTR. RATE CALC > 60 mL/min (>60); GLUCOSE,RANDOM 89 mg/dL (70-110); SODIUM SERUM 137 mmol/L (136-145); UREA NITROGEN, BLOOD 9 mg/dL (7-18); VALPROIC ACID 39 mcg/mL (50-100)
[2018-05-15 16:00] VITALS: BP 112/65
[2018-05-15] MEDS: DIVALPROEX SODIUM 500 MG ER TABLET PO SCH (16:12)
[2018-05-15] MEDS: OLANZapine 10 MG TABLET PO SCH (20:19)
[2018-05-16] MEDS: HALOPERIDOL 5 MG TABLET PO PRN ×2 (05:53→16:35)
[2018-05-16 06:00] VITALS: BP 110/87
[2018-05-16] MEDS: LEVOTHYROXINE SODIUM 50 MCG TABLET PO SCH (06:40)
[2018-05-16] MEDS: FERROUS SULFATE 325 MG EC TABLET PO SCH ×2 (06:52→16:36)
[2018-05-16 08:23] VITALS: BP 119/69
[2018-05-16] MEDS: CIPROFLOXACIN HCL 250 MG TABLET PO SCH ×2 (09:43→16:36)
[2018-05-16] MEDS: DIVALPROEX SODIUM 500 MG ER TABLET PO SCH ×2 (09:44→16:35)
[2018-05-16] MEDS: LORazepam 2 MG TABLET PO PRN ×2 (09:44→16:35)
[2018-05-16] MEDS: FLUoxetine HCL 20 MG CAPSULE PO SCH (09:44)
[2018-05-16 16:08] VITALS: BP 108/71
[2018-05-16] MEDS: OLANZapine 10 MG TABLET PO SCH (20:27)
[2018-05-17 01:00] VITALS: BP 122/65
[2018-05-17] MEDS: LEVOTHYROXINE SODIUM 50 MCG TABLET PO SCH (06:23)
[2018-05-17] MEDS: FERROUS SULFATE 325 MG EC TABLET PO SCH ×2 (07:02→16:12)
[2018-05-17 08:35] VITALS: BP 116/71
[2018-05-17] MEDS: FLUoxetine HCL 20 MG CAPSULE PO SCH (08:40)
[2018-05-17] MEDS: DIVALPROEX SODIUM 500 MG ER TABLET PO SCH (08:40)
[2018-05-17] MEDS: CIPROFLOXACIN HCL 250 MG TABLET PO SCH ×2 (08:40→16:12)
[2018-05-17 16:00] VITALS: BP 127/66
[2018-05-17] MEDS: DIVALPROEX SODIUM 250 MG ER TABLET PO SCH (16:12)
[2018-05-17] MEDS: LORazepam 2 MG TABLET PO PRN (16:12)
[2018-05-17] MEDS: HALOPERIDOL 5 MG TABLET PO PRN (16:12)
[2018-05-17] MEDS: OLANZapine 10 MG TABLET PO SCH (20:28)
[2018-05-18 00:09] VITALS: BP 103/66
[2018-05-18] MEDS: LEVOTHYROXINE SODIUM 50 MCG TABLET PO SCH (06:10)
[2018-05-18] MEDS: FERROUS SULFATE 325 MG EC TABLET PO SCH ×2 (06:34→16:22)
[2018-05-18] MEDS: DIVALPROEX SODIUM 250 MG ER TABLET PO SCH ×2 (08:17→16:22)
[2018-05-18] MEDS: FLUoxetine HCL 20 MG CAPSULE PO SCH (08:17)
[2018-05-18 11:06] VITALS: BP 109/65
[2018-05-18 16:14] VITALS: BP 114/68
[2018-05-18] MEDS: LORazepam 2 MG TABLET PO PRN (16:22)
[2018-05-18] MEDS: HALOPERIDOL 5 MG TABLET PO PRN (16:22)
[2018-05-18] MEDS: OLANZapine 10 MG TABLET PO SCH (20:54)
[2018-05-19 04:12] VITALS: BP 110/70
[2018-05-19] MEDS: LEVOTHYROXINE SODIUM 50 MCG TABLET PO SCH (06:39)
[2018-05-19] MEDS: FERROUS SULFATE 325 MG EC TABLET PO SCH ×2 (06:39→16:11)
[2018-05-19 08:39] VITALS: BP 116/68
[2018-05-19] MEDS: DIVALPROEX SODIUM 250 MG ER TABLET PO SCH ×2 (08:52→16:11)
[2018-05-19] MEDS: LORazepam 2 MG TABLET PO PRN ×2 (08:52→16:11)
[2018-05-19] MEDS: FLUoxetine HCL 20 MG CAPSULE PO SCH (08:52)
[2018-05-19 16:08] VITALS: BP 116/81
[2018-05-19] MEDS: OLANZapine 10 MG TABLET PO SCH (20:22)
[2018-05-20 06:26] VITALS: BP 112/80
[2018-05-20] MEDS: LEVOTHYROXINE SODIUM 50 MCG TABLET PO SCH (06:42)
[2018-05-20] MEDS: FERROUS SULFATE 325 MG EC TABLET PO SCH ×2 (06:42→16:02)
[2018-05-20 08:26] VITALS: BP 119/77
[2018-05-20] MEDS: FLUoxetine HCL 20 MG CAPSULE PO SCH (08:32)
[2018-05-20] MEDS: DIVALPROEX SODIUM 500 MG ER TABLET PO SCH ×2 (08:33→16:02)
[2018-05-20] MEDS: HALOPERIDOL 5 MG TABLET PO PRN (16:02)
[2018-05-20 16:45] VITALS: BP 122/68
[2018-05-20] MEDS: OLANZapine 10 MG TABLET PO SCH (20:06)
[2018-05-21] MEDS: LEVOTHYROXINE SODIUM 50 MCG TABLET PO SCH (05:51)
[2018-05-21 05:52] VITALS: BP 114/59
[2018-05-21] MEDS: FERROUS SULFATE 325 MG EC TABLET PO SCH (06:40)
[2018-05-21] MEDS: DIVALPROEX SODIUM 500 MG ER TABLET PO SCH (08:33)
[2018-05-21] MEDS: FLUoxetine HCL 20 MG CAPSULE PO SCH (08:33)
[2018-05-21 08:44] VITALS: BP 116/78
[2018-05-21] MEDS ORDERED: OLAN10TA3 PO (09:23)
[2018-05-21] MEDS ORDERED: FLUO-191 PO (09:23)
[2018-05-21] MEDS ORDERED: DIVA500T52 PO (09:23)
[2018-05-21] MEDS ORDERED: FERR-89 PO (09:23)
[2018-05-21] MEDS ORDERED: LEVO50TA11 PO (09:23)
== END 2018-05-21 12:12 | disposition home or self-care (01) | DRG 750 ==
LOC: EMS 11:58 → B3A 16:57 → B2S 05-20 13:03
PROVIDERS: ADMIT Psychiatry & Neurology Psychiatry; ATTEND Psychiatry & Neurology Psychiatry
DX: F25.0 Schizoaffective disorder, bipolar type (principal); E43 Unspecified severe protein-calorie malnutrition; Z59.0 Homelessness; F41.9 Anxiety disorder, unspecified; F60.3 Borderline personality disorder; R45.87 Impulsiveness; F17.200 Nicotine dependence, unspecified, uncomplicated; G47.00 Insomnia, unspecified; F12.90 Cannabis use, unspecified, uncomplicated; F15.90 Other stimulant use, unspecified, uncomplicated; N39.0 Urinary tract infection, site not specified; D64.9 Anemia, unspecified; Z79.899 Other long term (current) drug therapy; Z68.21 Body mass index [BMI] 21.0-21.9, adult
CPT/HCPCS: 80307; 83036; 84443; 87086; 96372; 99291; G0480; J1200; J1630; J2060

== ENCOUNTER 2018-10-08 07:09 | Emergency (ER) | payer MEDICAID ==
[~2018-10-08] VITALS: Ht 162.6 cm; Wt 68.2 kg
[~2018-10-08 07:09] MED LIST changes: -DIVA-78 PO; +DIVA500T52 PO; -FERR325T22 PO; -FLUO-191 PO; -OLAN10TA20 PO; +OLAN10TA3 PO; -OLAN5TAB27 PO
[2018-10-08] MEDS ORDERED: DiphenhydrAMINE HCL 50 MG/ML VIAL IM ONE (07:30)
[2018-10-08] MEDS ORDERED: LORazepam 2 MG/ML VIAL IM ONE (07:30)
[2018-10-08] MEDS ORDERED: HALOPERIDOL LACTATE 5 MG/ML VIAL IM ONE (07:30)
[2018-10-08] MEDS ORDERED: MIDAZOLAM HCL 5 MG/ML VIAL IM ONE (08:00)
[2018-10-08 08:31] LABS: BASOPHILS % (AUTO) 0.2 % (0.0-2.0); EOSINOPHILS % (AUTO) 0.1 % (1.0-6.0); HEMOGLOBIN 13.4 g/dL (12.0-16.0); LYMPHOCYTES # (AUTO) 0.7 K/uL (1.0-4.8); LYMPHOCYTES % (AUTO) 5.6 % (22.0-44.0); MEAN CORPUSCULAR HEMOGLOBIN 29.4 pg (26.0-34.0); MEAN CORPUSCULAR HGB CONC 34.3 G/dL (31.0-37.0); MEAN CORPUSCULAR VOLUME 86 fL (80-100); MONOCYTES # (AUTO) 0.8 K/uL (0.1-1.0); MONOCYTES % (AUTO) 6.4 % (2.0-9.0); NEUTROPHILS # (AUTO) 11.6 K/uL (1.8-7.7); PLATELET COUNT (AUTO) 209 K/uL (150-450); RED BLOOD CELL COUNT(AUTO) 4.55 MIL/uL (4.00-5.20); RED CELL DISTRIBUTION WIDTH 15.6 % (11.5-14.5)
[2018-10-08 08:45] LABS: ANION GAP 7 mmol/L (8-16); CALCIUM, TOTAL 7.8 mg/dL (8.8-10.5); CARBON DIOXIDE 28 mmol/L (22-29); CHLORIDE 104 mmol/L (98-107); CREATININE 1.08 mg/dL (0.60-1.30); GLOMERULAR FILTR. RATE CALC > 60 mL/min (>60); GLUCOSE,RANDOM 143 mg/dL (70-110); NEUTROPHILS % (AUTO) 87.7 % (40.0-70.0); POTASSIUM 3.7 mmol/L (3.5-5.1); SODIUM SERUM 139 mmol/L (136-145); UREA NITROGEN, BLOOD 8 mg/dL (7-18)
[2018-10-08 08:50] LABS: ALANINE AMINOTRANSFERASE 48 U/L (12-78); ALBUMIN 3.5 g/dL (3.4-5.0); ALKALINE PHOSPHATASE 93 U/L (46-116); ASPARTATE AMINOTRANSFERASE 40 U/L (15-37); BILIRUBIN,TOTAL 0.3 mg/dL (0.1-1.0)
[2018-10-08 09:35] LABS: AMPHET/METH SCREEN,URINE POSITIVE (NEGATIVE); BARBITURATE SCREEN, URINE NEGATIVE (NEGATIVE); BENZODIAZEPINES SCREEN,URINE POSITIVE (NEGATIVE); CANNABINOID SCREEN,URINE POSITIVE (NEGATIVE); COCAINE SCREEN,URINE NEGATIVE (NEGATIVE); METHADONE SCREEN, URINE NEGATIVE (NEGATIVE); OPIATE SCREEN,URINE NEGATIVE (NEGATIVE)
[2018-10-08 09:39] LABS: PHENCYCLIDINE SCREEN,URINE NEGATIVE (NEGATIVE)
[2018-10-08 10:26] VITALS: BP 110/69
== END 2018-10-08 10:47 | disposition home or self-care (01) ==
LOC: EMS 07:10
DX: R45.1 Restlessness and agitation (principal); F15.10 Other stimulant abuse, uncomplicated; F31.9 Bipolar disorder, unspecified; F20.9 Schizophrenia, unspecified; F17.210 Nicotine dependence, cigarettes, uncomplicated; F12.90 Cannabis use, unspecified, uncomplicated
CPT/HCPCS: 36415; 80053; 80307; 85025; 96372; 99284; G0480; J1200; J1630; J2060; J2250

== ENCOUNTER 2019-10-22 20:10 | Emergency (ER) | payer MEDICAID ==
[~2019-10-22] VITALS: Ht 157.5 cm; Wt 60.5 kg
[2019-10-22] MEDS ORDERED: FLUO10CA21 PO (20:18)
[2019-10-22] MEDS ORDERED: SULFAMETHOX/TRIMETH DS 800-160 MG/TABLET PO ONE (21:00)
[2019-10-22] MEDS ORDERED: CEPHALEXIN MONOHYDRATE 500 MG CAPSULE PO ONE (21:00)
[2019-10-22] MEDS ORDERED: ACETAMINOPHEN 500 MG TABLET PO ONE (21:00)
[2019-10-22 21:24] LABS: AMPHET/METH SCREEN,URINE POSITIVE (NEGATIVE); BARBITURATE SCREEN, URINE NEGATIVE (NEGATIVE); BENZODIAZEPINES SCREEN,URINE NEGATIVE (NEGATIVE); CANNABINOID SCREEN,URINE POSITIVE (NEGATIVE); COCAINE SCREEN,URINE NEGATIVE (NEGATIVE); METHADONE SCREEN, URINE NEGATIVE (NEGATIVE); OPIATE SCREEN,URINE NEGATIVE (NEGATIVE)
[2019-10-22 21:25] LABS: PHENCYCLIDINE SCREEN,URINE NEGATIVE (NEGATIVE)
[2019-10-22 22:26] VITALS: BP 120/70
== END 2019-10-22 22:27 | disposition home or self-care (01) ==
LOC: EMS 20:12
DX: N73.2 Unspecified parametritis and pelvic cellulitis (principal); F31.9 Bipolar disorder, unspecified; F20.9 Schizophrenia, unspecified; F17.210 Nicotine dependence, cigarettes, uncomplicated; F12.90 Cannabis use, unspecified, uncomplicated; Z79.899 Other long term (current) drug therapy
CPT/HCPCS: 99406

== ENCOUNTER 2020-06-21 10:39 | Inpatient (IN) | payer MEDICAID ==
[~2020-06-21] VITALS: Ht 157.5 cm; Wt 63.6 kg
[~2020-06-21 10:39] MED LIST changes: -DIVA500T52 PO; +FLUO10CA21 PO; -LEVO50TA11 PO
[2020-06-21] MEDS ORDERED: DiphenhydrAMINE HCL 50 MG/ML VIAL IM ONE (11:15)
[2020-06-21] MEDS ORDERED: HALOPERIDOL LACTATE 5 MG/ML VIAL IM ONE (11:30)
[2020-06-21] MEDS ORDERED: LORazepam 2 MG/ML VIAL IM ONE (12:30)
[2020-06-21 13:46] LABS: BASOPHILS % (AUTO) 0.3 % (0.0-2.0); EOSINOPHILS % (AUTO) 0.6 % (1.0-6.0); HEMATOCRIT 40.3 % (36-46); HEMOGLOBIN 13.5 g/dL (12.0-16.0); LYMPHOCYTES # (AUTO) 1.5 K/uL (1.0-4.8); LYMPHOCYTES % (AUTO) 13.7 % (22.0-44.0); MEAN CORPUSCULAR HEMOGLOBIN 29.9 pg (26.0-34.0); MEAN CORPUSCULAR HGB CONC 33.4 G/dL (31.0-37.0); MEAN CORPUSCULAR VOLUME 90 fL (80-100); MONOCYTES % (AUTO) 8.7 % (2.0-9.0); NEUTROPHILS # (AUTO) 8.5 K/uL (1.8-7.7); NEUTROPHILS % (AUTO) 76.7 % (40.0-70.0); PLATELET COUNT (AUTO) 255 K/uL (150-450); RED CELL DISTRIBUTION WIDTH 14.5 % (11.5-14.5)
[2020-06-21 13:54] LABS: ANION GAP 7 mmol/L (8-16); CALCIUM, TOTAL 9.5 mg/dL (8.8-10.5); CARBON DIOXIDE 29 mmol/L (22-29); CHLORIDE 105 mmol/L (98-107); CREATININE 1.01 mg/dL (0.60-1.30); GLOMERULAR FILTR. RATE CALC > 60 mL/min (>60); GLUCOSE,RANDOM 111 mg/dL (70-110); POTASSIUM 3.6 mmol/L (3.5-5.1); SODIUM SERUM 141 mmol/L (136-145); UREA NITROGEN, BLOOD 12 mg/dL (7-18)
[2020-06-21 14:05] LABS: ALANINE AMINOTRANSFERASE 42 U/L (12-78); ALBUMIN 3.7 g/dL (3.4-5.0); ALKALINE PHOSPHATASE 96 U/L (46-116); ASPARTATE AMINOTRANSFERASE 25 U/L (15-37); BILIRUBIN,TOTAL 0.3 mg/dL (0.1-1.0); HCG,QUANTITATIVE < 1 mIU/mL (0-6); TOTAL PROTEIN, SERUM 6.9 g/dL (6.4-8.2)
[2020-06-21 14:06] LABS: ACETAMINOPHEN < 2 mcg/mL (10-30)
[2020-06-21 14:17] LABS: SALICYLATE 3.7 mg/dL (2.8-20.0)
[2020-06-21] MEDS ORDERED: HALOPERIDOL 5 MG TABLET PO PRN (16:45)
[2020-06-21] MEDS: BENZTROPINE MESYLATE 0.5 MG TABLET PO SCH (21:09)
[2020-06-21] MEDS: ZOLPIDEM TARTRATE 10 MG TABLET PO PRN (21:09)
[2020-06-21] MEDS: ClonazePAM 1 MG TABLET PO SCH (21:09)
[2020-06-21] MEDS: HALOPERIDOL 1 MG TABLET PO SCH (21:09)
[2020-06-21] MEDS: OLANZapine 5 MG TABLET PO SCH (21:09)
[2020-06-22 00:27] VITALS: BP 100/62
[2020-06-22 08:13] VITALS: BP 116/55
[2020-06-22] MEDS: BENZTROPINE MESYLATE 0.5 MG TABLET PO SCH ×2 (08:30→16:33)
[2020-06-22] MEDS: HALOPERIDOL 1 MG TABLET PO SCH ×2 (08:32→16:33)
[2020-06-22] MEDS: ClonazePAM 1 MG TABLET PO SCH (08:32)
[2020-06-22] MEDS: LORazepam 2 MG TABLET PO PRN (08:33)
[2020-06-22 16:19] VITALS: BP 105/60
[2020-06-22] MEDS ORDERED: MAGNESIUM HYDROXIDE SUSPENSION 30 ML UDCUP PO PRN (16:30)
[2020-06-22] MEDS ORDERED: ALBUTEROL SULFATE HFA 90 MCG/PUFF 8 GM INHALER IH PRN (16:30)
[2020-06-22] MEDS ORDERED: LOPERAMIDE HCL 2 MG CAPSULE PO PRN (16:30)
[2020-06-22] MEDS ORDERED: IBUPROFEN 400 MG TABLET PO PRN (16:30)
[2020-06-22] MEDS ORDERED: ONDANSETRON HCL 4 MG TABLET PO PRN (16:30)
[2020-06-22] MEDS ORDERED: DOCUSATE SODIUM 100 MG CAPSULE PO PRN (16:30)
[2020-06-22] MEDS ORDERED: CloNIDine HCL 0.1 MG TABLET PO PRN (16:30)
[2020-06-22] MEDS ORDERED: ACETAMINOPHEN 325 MG TABLET PO PRN (16:30)
[2020-06-22] MEDS ORDERED: MAG HYDROX/AL HYDROX/SIMETH ES 30 ML SUSPENSION UDCUP PO PRN (16:30)
[2020-06-22] MEDS ORDERED: PETROLATUM,WHITE 28 GM JELLY TP PRN (16:30)
[2020-06-22] MEDS ORDERED: GuaiFENesin/D-METHORPHAN [SUGAR-FREE] 200-20MG/10 ML SYRUP UDCUP PO PRN (16:30)
[2020-06-22] MEDS ORDERED: NICOTINE 14 MG/24 HOUR PATCH TD PRN (16:30)
[2020-06-22] MEDS: OLANZapine 5 MG TABLET PO SCH (20:39)
[2020-06-23 07:28] VITALS: BP 117/65
[2020-06-23 08:16] LABS: CHOL/HDL RATIO 3.6 (3.9-5.7); FREE T4 (FREE THYROXINE) 0.81 ng/dL (0.76-1.46)
[2020-06-23 08:30] VITALS: BP 112/73
[2020-06-23] MEDS: BENZTROPINE MESYLATE 0.5 MG TABLET PO SCH ×2 (08:43→16:40)
[2020-06-23] MEDS: HALOPERIDOL 1 MG TABLET PO SCH ×2 (08:43→16:40)
[2020-06-23 16:08] VITALS: BP 119/76
[2020-06-23] MEDS: LORazepam 2 MG TABLET PO PRN (19:27)
[2020-06-23] MEDS: OLANZapine 5 MG TABLET PO SCH (21:45)
[2020-06-23] MEDS: ZOLPIDEM TARTRATE 10 MG TABLET PO PRN (21:45)
[2020-06-24] MEDS: LORazepam 2 MG TABLET PO PRN (00:44)
[2020-06-24 00:48] VITALS: BP 112/72
[2020-06-24 08:29] VITALS: BP 119/70
[2020-06-24] MEDS: HALOPERIDOL 1 MG TABLET PO SCH ×2 (08:44→16:46)
[2020-06-24] MEDS: BENZTROPINE MESYLATE 0.5 MG TABLET PO SCH ×2 (08:44→16:46)
[2020-06-24 16:03] VITALS: BP 118/81
[2020-06-24] MEDS: OLANZapine 5 MG TABLET PO SCH (20:10)
[2020-06-24] MEDS: ZOLPIDEM TARTRATE 10 MG TABLET PO PRN (20:41)
[2020-06-25 05:21] VITALS: BP 101/63
[2020-06-25] MEDS: HALOPERIDOL 1 MG TABLET PO SCH ×2 (08:00→17:09)
[2020-06-25] MEDS: BENZTROPINE MESYLATE 0.5 MG TABLET PO SCH ×2 (08:00→17:08)
[2020-06-25 08:09] VITALS: BP 112/66
[2020-06-25 16:06] VITALS: BP 116/70
[2020-06-25] MEDS: OLANZapine 5 MG TABLET PO SCH (20:05)
[2020-06-25] MEDS: ZOLPIDEM TARTRATE 10 MG TABLET PO PRN (20:05)
[2020-06-26 00:51] VITALS: BP 110/74
[2020-06-26 08:10] VITALS: BP 120/63
[2020-06-26] MEDS: HALOPERIDOL 1 MG TABLET PO SCH (08:21)
[2020-06-26] MEDS: BENZTROPINE MESYLATE 0.5 MG TABLET PO SCH (08:21)
[2020-06-26] MEDS ORDERED: HALO1TAB19 PO (13:26)
[2020-06-26] MEDS ORDERED: OLAN10TA3 PO (13:26)
[2020-06-26] MEDS ORDERED: BENZ0.5T44 PO (13:26)
[2020-06-26 16:26] VITALS: BP 112/74
== END 2020-06-26 17:30 | disposition home or self-care (01) | DRG 750 ==
LOC: EMS 10:40 → B3A 16:37
PROVIDERS: ADMIT Psychiatry & Neurology Child & Adolescent Psychiatry; ATTEND Psychiatry & Neurology Psychiatry
DX: F25.0 Schizoaffective disorder, bipolar type (principal); D72.829 Elevated white blood cell count, unspecified; E03.9 Hypothyroidism, unspecified; F12.90 Cannabis use, unspecified, uncomplicated; F17.210 Nicotine dependence, cigarettes, uncomplicated; Z91.14 Patient's other noncompliance with medication regimen; F32.9 Major depressive disorder, single episode, unspecified; R73.9 Hyperglycemia, unspecified
CPT/HCPCS: 84439; 84443; 99291; G0480; G0481; J1200; J1630; J2060